=== PATIENT | female | born 1970 | race Hispanic/Latino ===

== ENCOUNTER 2022-01-01 18:39 | Emergency (ER) | payer SELFPAY ==
[2022-01-01] MEDS ORDERED: ONDANSETRON 4 MG/2 ML INJ IV ONE (19:18)
[2022-01-01] MEDS ORDERED: HYDROmorphone 1 MG/1 ML INJ IV ONE ×2 (19:18→19:48)
--- NOTE | 2022-01-01 19:22 | Emergency Department Report ---
HPI - General Chief Complaint: Extremity Injury, Upper Time Seen by Provider: 01/01/22 19:10 - HPI HPI: Room 4 The patient is a 51-year-old female present with chief complaint left upper extremity pain. The patient states approximate 1 to 2 hours ago she had onset of left upper extremity pain and paralysis. Patient denies injury. Patient states she is unable to move left upper extremity or make a fist. Patient states she has not had pain like this before. Patient gives her pain a score of 10/10. Patient states she only has pain in her left upper extremity and nowhere else ED Past Medical Hx - Past Medical History Previous Medical History?: No - Surgical History Past Surgical History?: No Additional Surgical History: Knee surgery - Family History Family history: no significant - Social History Smoking Status: Current Every Day Smoker (1/3 pack/day) Substance Use Type: None (Denies illicit drug use), Alcohol ED Review of Systems ROS: Stated complaint: AB PAIN Other details as noted in HPI Constitutional: no symptoms reported Eyes: denies: eye pain ENT: denies: throat pain Respiratory: no symptoms reported Cardiovascular: denies: chest pain Endocrine: no symptoms reported Gastrointestinal: denies: abdominal pain Musculoskeletal: myalgia Neurological: denies: headache Physical Exam - Physical Exam Vital Signs: Vital Signs 01/01/22 18:41 Temperature 98.2 F Pulse Rate 110 H Respiratory 18 Rate Blood Pressure 188/114 O2 Sat by Pulse 98 Oximetry Physical Exam: GENERAL: The patient is well-developed well-nourished female lying on stretcher moaning in pain. [] HEENT: Normocephalic. Atraumatic. Extraocular motions are intact. Patient has moist mucous membranes. NECK: Supple. Trachea midline CHEST/LUNGS: There is no respiratory distress noted. HEART/CARDIOVASCULAR: Unable to palpate radial or ulnar pulse on the left upper extremity. Capillary refill sluggish to 8 sec on the digits of left hand SKIN: There is no rash. There is no edema. There is no diaphoresis. NEURO: The patient is awake, alert, and oriented. The patient is cooperative. The patient is unable to raise left upper extremity off of stretcher. Patient is unable to make a fist with the left hand. The patient has normal speech MUSCULOSKELETAL: There is no evidence of acute injury. ED Course Vital Signs 01/01/22 18:41 Temperature 98.2 F Pulse Rate 110 H Respiratory 18 Rate Blood Pressure 188/114 O2 Sat by Pulse 98 Oximetry - Consultations Consultation #1: 01/01/22 19:19 Vascular surgery paged 01/01/22 19:26 Case discussed with vascular surgeon Dr. Kirkland- will notify cath team. Recommends stat CTA left upper extremity and heparin drip Consultation #2: 01/01/22 20:46 [facility] transfer line called 01/01/22 21:42 Case discussed with [facility] vascular surgeon, neuro interventionalist and critical care physician-will accept patient in transfer to [facility] 01/01/22 22:56 Case discussed with [facility] COVID unit APRIL Sunday-will accept patient in transfer ED Medical Decision Making - Lab Data Result diagrams: 01/01/22 19:14 01/01/22 19:14 - Radiology Data Radiology results: report reviewed (CTA left upper extremity), image reviewed (CTA left upper extremity) interpreted by me: Chest [id number] lung zone haziness. No pneumothorax [facility] [address] [place] [address] Cat Scan Report Signed Patient: CHER HERNANDEZ MR#: [id number] : 1970 Acct:[id number] Age/Sex: 51 / F ADM Date: 01/01/22 Loc: ED Attending Dr: Ordering Physician: SIDDHARTHA RIBEIRO MD Date of Service: 01/01/22 Procedure(s): CT angio upper extremity LT Accession Number(s): [id number] cc: SIDDHARTHA RIBEIRO MD CT angio upper extremity LT INDICATION: Left arm pain paralysis unable to palpate pulse. TECHNIQUE: CTA of the left arm with IV contrast. 3 plane MIP reconstructions were produced. All CT scans at this location are performed using CT dose reduction for ALARA by means of automated exposure control. COMPARISON: None available. FINDINGS: The left axillary artery is focally occluded. The left subclavian artery appears normal. The remainder of the left upper extremity arteries demonstrate minimal opacification from collateral flow but they are not well opacified. Additionally, there is a focal occlusion of the left vertebral artery in the neck at the C2 level. There is reconstitution intracranially from collateral flow. No additional focal occlusions are see n. The thoracic aorta is normal in caliber. Visualized portions of the lung demonstrate mild interstitial pulmonary edema. Visualized portions of the brain appear normal. IMPRESSION: 1. Focal occlusion of the left axillary artery with only minimal flow from collateral vessels in the remainder of the more distal left upper extremity. 2. Occlusion of the left vertebral artery at the C2 level with reconstitution intracranially from collateral flow. Findings discussed with Dr. Ribeiro at 7:05 PM. Signer Name: Dangelo Herrera MD Signed: 01/01/2022 8:05 PM Workstation Name: [id number] Transcribed By: ALLEN Dictated By: Dangelo Herrera MD Electronically Authenticated By: Dangelo Herrera MD Signed Date/Time: 01/01/222004 DD/ 99 TD/TT: [facility] [address] [place] [address] XRay Report Signed Patient: CHER HERNANDEZ MR#: [id number] : 1970 Acct:[id number] Age/Sex: 51 / F ADM Date: 01/01/22 Loc: ED Attending Dr: Ordering Physician: SIDDHARTHA RIBEIRO MD Date of Service: 01/01/22 Procedure(s): XR chest 1V ap Accession Number(s): [id number] cc: SIDDHARTHA RIBEIRO MD Fluoro Time In Minutes: CHEST 1 VIEW 01/01/2022 8:05 PM INDICATION / CLINICAL INFORMATION: Hypoxia. COMPARISON: None available. FINDINGS: SUPPORT DEVICES: None. HEART / MEDIASTINUM: Moderate cardiomegaly. LUNGS / PLEURA: Mild interstitial edema. No pneumothorax. ADDITIONAL FINDINGS: No significant additional findings. IMPRESSION: 1. Moderate cardiomegaly with mild interstitial pulmonary edema. S igner Name: Dangelo Herrera MD Signed: 01/01/2022 8:24 PM Workstation Name: [id number] Transcribed By: ALLEN Dictated By: Dangelo Herrera MD Electronically Authenticated By: Dangelo Herrera MD Signed Date/Time: 01/01/222023 DD/ 22 TD/TT: - Differential Diagnosis Acute arterial occlusion Critical care attestation.: If time is entered above; I have spent that time in minutes in the direct care of this critically ill patient, excluding procedure time. ED Disposition Clinical Impression: Acute occlusion of artery of upper extremity, Hypoxia, Vertebral artery occlusion Disposition: 51 HOSPICE/MEDICAL FACILITY Is pt being admited?: No Does the pt Need Aspirin: No Condition: Serious Referrals: PRIMARY CARE, [Primary Care Provider] - 3-5 Days Time of Disposition: 22:56 (Awaiting transport)
[2022-01-01] MEDS ORDERED: HEPARIN 10,000 UNITS/10 ML VIAL IV ONE (19:27)
[2022-01-01] MEDS ORDERED: HEPARIN 10,000 UNITS/10 ML VIAL IV PRN (19:27)
[2022-01-01 20:00] LABS: BUN/Creatinine Ratio 28; Blood Urea Nitrogen 22 mg/dL (7-17); Calcium 8.7 mg/dL (8.4-10.2); Hemolysis Index 0
[2022-01-01] MEDS ORDERED: HEPARIN/ 0.45% NACL DRIP 25,000 UNIT/500 ML BAG IV SCH (20:00)
[2022-01-01 20:02] LABS: Basophils % (Auto) 0.3 % (0.0-1.8); Eosinophils % (Auto) 0.2 % (0.0-4.3); Hemoglobin 11.6 gm/dl (10.1-14.3); Lymphocytes # (Auto) 1.7 K/mm3 (1.2-5.4); Lymphocytes % (Auto) 14.4 % (13.4-35.0); Mean Corpuscular HGB Conc 33 % (30-34); Mean Corpuscular Volume 94 fl (79-97); Monocytes # (Auto) 0.5 K/mm3 (0.0-0.8); Monocytes % (Auto) 4.4 % (0.0-7.3); Platelet Count 258 K/mm3 (140-440); Red Blood Count 3.71 M/mm3 (3.65-5.03); Red Cell Distribution Width 15.2 % (13.2-15.2)
--- NOTE | 2022-01-01 20:09 | Cat Scan Report ---
CT angio upper extremity LT INDICATION: Left arm pain paralysis unable to palpate pulse. TECHNIQUE: CTA of the left arm with IV contrast. 3 plane MIP reconstructions were produced. All CT scans at [facility] location are performed using CT dose reduction for ALARA by means of automated exposure control. COMPARISON: None available. FINDINGS: The left axillary artery is focally occluded. The left subclavian artery appears normal. The remainde r of the left upper extremity arteries demonstrate minimal opacification from collateral flow but the y are not well opacified. Additionally, there is a focal occlusion of the left vertebral artery in the neck at the C2 level. Th ere is reconstitution intracranially from collateral flow. No additional focal occlusions are seen. The thoracic aorta is normal in caliber. Visualized portions of the lung demonstrate mild interstitial pulmonary edema. Visualized portions of the brain appear normal. IMPRESSION: 1. Focal occlusion of the left axillary artery with only minimal flow from collateral vessels in the remainder of the more distal left upper extremity. 2. Occlusion of the left vertebral artery at the C2 level with reconstitution intracranially from col lateral flow. Findings discussed with Dr. Pablo at 7:05 PM. Signer Name: Dangelo Herrera MD Signed: 01/01/2022 8:05 PM Workstation Name: [id number]
[2022-01-01 20:14] LABS: INR 1.08 (0.87-1.13)
[2022-01-01 20:15] LABS: Partial Thromboplastin Time 34.2 Sec. (24.2-36.6)
--- NOTE | 2022-01-01 20:28 | XRay Report ---
CHEST 1 VIEW 01/01/2022 8:05 PM INDICATION / CLINICAL INFORMATION: Hypoxia. COMPARISON: None available. FINDINGS: SUPPORT DEVICES: None. HEART / MEDIASTINUM: Moderate cardiomegaly. LUNGS / PLEURA: Mild interstitial edema. No pneumothorax. ADDITIONAL FINDINGS: No significant additional findings. IMPRESSION: 1. Moderate cardiomegaly with mild interstitial pulmonary edema. Signer Name: Dangelo Herrera MD Signed: 01/01/2022 8:24 PM Workstation Name: [id number]
[2022-01-01 20:30] LABS: ABG Base Excess -5.2 mmol/L (-2.0-3.0); ABG HCO3 20.4 mmol/L (20.0-26.0); ABG Methemoglobin 0.5 % (0.0-1.5); ABG Oxygen Saturation 83.1 % (95.0-99.0); ABG PCO2 39.9 mm Hg; ABG PH 7.325 pH Units (7.350-7.450); ABG PO2 53.2 mm Hg (80.0-90.0)
--- NOTE | 2022-01-01 21:04 | Consultation ---
History of Present Illness - Reason for Consult Consult date: 01/01/22 Arterial thrombus - History of Present Illness Patient with a past medical history significant only of hypertension who pre sents with acute pain and coldness involving her left arm from the shoulder distally. Patient has decreased strength 1 out of 5. Her skin from the elbow distally is mottled in appearance. Nonpalpable pulses. The patient has intact although decreased sensation. Patient admits to having illness over the last several days prior to her presentation. She underwent a CTA of the arm with imaging obtained of the upper chest from mid heart to mid brain. This demonstrates scattered peripheral airspace opacities which may represent COVID- 19 infection in conjunction with her acute thrombus. Additionally, within the distal vertebral body at the C2 and C1 levels there is acute thrombus on the left. After her CTA, the patient underwent a respiratory event in which she desatted down to the 70s however improved with nonrebreather to 100%. Review of the CTA of the arm demonstrated imaging of the upper pulmonary vasculature and no large central or segmental pulmonary embolus is identified at that time. Past History Past Medical History: hypertension Medications and Allergies Allergies Allergy/AdvReac Type Severity Reaction Status Date / Time No Known Allergies Allergy Verified 01/01/22 19:25 Active Meds: Active Medications Heparin Sodium (Porcine) (Heparin 10,000 Units/10 Ml Vial) 2,600 unit 40 unit/kg (2600 unit) IV Q6H PRN PRN Reason: Anti-Xa Assay<0.1 units/ml Heparin Sodium/Sodium Chloride (Heparin/ 0.45% Nacl-25,000 Unit/500 Ml) 25,000 unit in 500 mls @ 18 mls/hr IV TITRATE DIANNA; Protocol Last Admin: 01/01/22 19:55 Dose: 900 units/hr, 18 mls/hr Review of Systems All systems: negative Exam - Constitutional Vitals: Temp Pulse Resp BP Pulse Ox 97.6 F 111 H 20 156/100 78 L 01/01/22 20:00 01/01/22 20:00 01/01/22 20:00 01/01/22 20:00 01/01/22 20:00 General appearance: Present: mild distress - EENT Eyes: Present: EOM intact ENT: hearing intact - Neck Neck: Present: supple, normal ROM - Respiratory Respiratory effort: normal (On nonrebreather) - Extremities Extremity abnormal: other (Acutely ischemic left arm) - Abdominal General gastrointestinal: Present: deferred - Rectal Rectal Exam: deferred - Musculoskeletal Musculoskeletal: left sided weakness (Left arm and hand) - Psychiatric Psychiatric: appropriate mood/affect, cooperative Results - Labs CBC & Chem 7: 01/01/22 19:14 01/01/22 19:14 Labs: Abnormal lab results 01/01/22 01/01/22 01/01/22 Range/Units 19:14 19:14 19:14 WBC 11.5 H (4.5-11.0) K/mm3 Seg Neutrophils % 80.7 H (40.0-70.0) % Seg Neutrophils # 9.3 H (1.8-7.7) K/mm3 PT 15.2 H (12.2-14.9) Sec. ABG pH (7.350-7.450) pH Units ABG pO2 (80.0-90.0) mm Hg ABG O2 Saturation (95.0-99.0) % ABG Base Excess (-2.0-3.0) mmol/L ABG Hemoglobin (12.0-16.0) gm/dl Oxyhemoglobin (95.0-99.0) % BUN 22 H (7-17) mg/dL Glucose 149 H (65-100) mg/dL 01/01/22 Range/Units 20:20 WBC (4.5-11.0) K/mm3 Seg Neutrophils % (40.0-70.0) % Seg Neutrophils # (1.8-7.7) K/mm3 PT (12.2-14.9) Sec. ABG pH 7.325 L (7.350-7.450) pH Units ABG pO2 53.2 L (80.0-90.0) mm Hg ABG O2 Saturation 83.1 L (95.0-99.0) % ABG Base Excess -5.2 L (-2.0-3.0) mmol/L ABG Hemoglobin 11.4 L (12.0-16.0) gm/dl Oxyhemoglobin 81.0 L (95.0-99.0) % BUN (7-17) mg/dL Glucose (65-100) mg/dL - Imaging and Cardiology CT scan - chest: image reviewed Assessment and Plan Patient with acute arterial thrombus involving her left arm beginning of the axillary artery with a short segment of brachial artery with reconstitution as well as a short segment of radial artery with reconstitution. Unable to visualize blood flow onto the lower arm or hand. The patient has acute arterial thrombus involving her left vertebral artery at C1/C2. Given her change in respiratory status, would suspect that the patient has COVID-19 infection with significant cardiac thrombus burden. Initially had planned on doing a thrombectomy of her arm however, given the presence of her thrombus within the vertebral artery the patient is at a significantly high likelihood of developing a CVA. Additionally, thrombolytics would potentially shower additional cardiac thrombus. Given the patient's vertebral thrombus and arm thrombus on the left, the patient will need to be transferred to an institution with neuro interventionalists so that removal of her thrombus burden can be managed safely from both her vertebral artery and brain. The patient will also need cardiac work-up. Recommended patient undergo COVID-19 testing as well.
[2022-01-02 01:36] VITALS: BP 159/100
== END 2022-01-01 23:45 | disposition hospice, inpatient (51) ==
LOC: ED 18:39
DX: I70.90 Unspecified atherosclerosis (principal); R09.02 Hypoxemia; I65.09 Occlusion and stenosis of unspecified vertebral artery; F17.200 Nicotine dependence, unspecified, uncomplicated
CPT/HCPCS: 36415; 71045; 73206; 80048; 82803; 85025; 85610; 85730; 96365; 96366; 96375; 96376; 99285; J1170; J1644; J2405; Q9967; J3490